=== PATIENT | male | born 1980 | race African-American/Black ===

== ENCOUNTER 2017-08-20 04:27 | Emergency (ER) | payer BC, SELFPAY ==
[2017-08-20 04:59] LABS: Bilirubin Negative (Negative); Blood, Urine Large (Negative); Glucose, Urine (Dipstick) Negative (Negative); Ketone, Urine Negative (Negative); Nitrite Negative (Negative); Protein, Urine (Dipstick) 30 mg/dL (Neg-Trace)
[2017-08-20 05:02] LABS: Bacteria/HPF None Seen HPF (None Seen); Hyaline Casts/LPF 0-3 HYALINE CAST LPF (0-3 Hyaline); RBC/HPF GREATER THAN 50-TNTC HPF (0-3); Squamous Epithelial 0-3 HPF (0-3)
[2017-08-20] MEDS ORDERED: Ketorolac Tromethamine 30 MG/ML VIAL ONE (05:10)
[2017-08-20] MEDS ORDERED: Ondansetron HCl/PF 4 MG/2 ML Vial ONE (05:11)
--- NOTE | 2017-08-20 08:35 | ULT ---
PRELIMINARY REPORT/[facility]/EMERGENCY AFTER HOURS PROCEDURE: EXAM: US Retroperitoneal renal EXAM DATE/TIME: 08/20/2017 5:57 AM CLINICAL HISTORY: 36 years old, male; Pain; Other: Lt flank pain TECHNIQUE: Real-time ultrasound of the retroperitoneum (renal) with image documentation. COMPARISON: No relevant prior studies available. FINDINGS: Right kidney: Right kidney 11.3 x 5.8 x 5.1 cm. Calcification of 6-7 mm in the mid/lower polar regio n. No hydronephrosis. Left kidney: Left kidney 11.7 x 7.1 x 4.7 cm. Mild to moderate hydronephrosis. Obstructing calculus proximal ureter 13 mm. Bladder: Urinary bladder unremarkable. IMPRESSION: 1. Left kidney . Mild to moderate hydronephrosis. Obstructing calculus proximal ureter 13 mm. 2. Right kidney Calcification of 6-7 mm in the mid/lower polar region. Thank you for allowing us to participate in the care of your patient. Dictated and Authenticated by: Fausto Cabrera MD 08/20/2017 6:56 AM Central Time ([place] \T\ [place]) FINAL REPORT EMERGENCY AFTER HOURS STUDY ULTRASOUND RETROPERITONEUM COMPLETE: (RENAL) HISTORY: 36-year-old male with left flank pain. FINDINGS: The bilateral ureteral jets are visualized in the urinary bladder, indicating no complete obstructio n. There is a calculus in the proximal left ureter associated with mild left hydronephrosis. There i s also a probable small calculus at the right renal mid-lower pole. No hydronephrosis on the right s rico. This report agrees with the preliminary report by Peter. IMPRESSION: Positive for left-sided obstructive uropathy: calculus at left ureteropelvic junction causing partia l obstruction, with mild left hydronephrosis. KARIN Quintana POS: AYO
== END 2017-08-20 07:12 | disposition home or self-care (01) ==
LOC: ERS 04:27
DX: N13.2 Hydronephrosis with renal and ureteral calculous obstruction (principal); F17.210 Nicotine dependence, cigarettes, uncomplicated
CPT/HCPCS: 76770; 81003; 81015; 96361; 96374; 96375; J1885; J2405